=== PATIENT | male | born 1990 | race Caucasian/White ===

== ENCOUNTER 2023-02-17 19:45 | Emergency (ER) | payer MEDICAID ==
[~2023-02-17] VITALS: Ht 165.1 cm; Wt 74.0 kg
[2023-02-17] MEDS ORDERED: ACETAMINOPHEN 325MG TABLET PO STA (22:10)
[2023-02-17] MEDS ORDERED: KETOROLAC 60MG/2ML VIAL IM STA (22:10)
[2023-02-17] MEDS ORDERED: FAMOTIDINE 20MG TABLET PO ONE (22:15)
[2023-02-17 23:08] LABS: BASOPHILS % 0.5 % (0.0-2.0); EOSINOPHILS % 1.2 % (0.0-5.0); HEMATOCRIT. 46.3 % (42.0-52.0); HEMOGLOBIN. 15.7 g/dL (14.0-18.0); LYMPHOCYTES % 43.4 % (20.0-50.0); MEAN CORPUSCULAR HEMOGLOBIN 30.1 pg (28.0-32.0); MEAN CORPUSCULAR VOLUME 88.6 fL (80.0-94.0); MEAN PLATELET VOLUME 7.7 fl (7.4-10.4); MONOCYTES % 8.9 % (2.0-8.0); PLATELET 281 x1000/uL (130-400); RED BLOOD CELL COUNT 5.23 mill/uL (4.7-6.1); RED CELL DISTRIBUTION WIDTH 13.8 % (11.6-14.6)
[2023-02-17 23:14] LABS: CHLORIDE 104 mEq/L (98-107)
[2023-02-17 23:17] LABS: INR 1.1; PROTHROMBIN TIME 11.4 sec (9.6-11.0)
[2023-02-18 01:55] VITALS: BP 120/88
== END 2023-02-18 01:56 | disposition home or self-care (01) ==
LOC: ER 19:45
DX: R10.11 Right upper quadrant pain (principal)
CPT/HCPCS: 36415; 76705; 80053; 83690; 85025; 85610; 96372; 99285; J1885; Z7610